=== PATIENT | female | born 1980 | race Caucasian/White ===

== ENCOUNTER → 2016-07-02 | Outpatient (CLI) | payer BC ==
--- NOTE | 2016-07-02 19:02 | DIAGNOSTIC IMAGING REPORT ---
CERVICAL SPINE 5 VIEWS CLINICAL HISTORY: Left-sided neck pain. FINDINGS: AP, lateral, bilateral oblique, and odontoid views of the cervical spine are obtained. No prior studies are available for comparison at the time of dictation. The skeletal structures are well mineralized. There is no radiographic evidence of fracture or subluxation. The odontoid process and lateral masses appear intact on the open mouth view. The spinolaminar line is preserved. Vertebral body height and alignment are maintained. There is straightening of the cervical lordosis. The spinous processes appear intact. The intervertebral disc spaces are normal. There is no evidence of neuroforaminal stenosis on the oblique views. The prevertebral soft tissues are within normal limits. Visualized apical lung parenchyma appears clear. IMPRESSION: There is no acute bony abnormality seen involving the cervical spine. Electronically signed by: Sergio Lubin M.D. 07/02/2016 7:00 PM Dictated Date/Time: 07/02/2016 6:59 PM
== END | disposition home or self-care (01) ==
LOC: C.RAD 18:07
PROVIDERS: ATTEND Internal Medicine
DX: M54.2 Cervicalgia (principal)

== ENCOUNTER → 2016-09-24 | Outpatient (CLI) | payer BC ==
--- NOTE | 2016-09-24 14:10 | DIAGNOSTIC IMAGING REPORT ---
MRI OF THE CERVICAL SPINE WITHOUT CONTRAST CLINICAL HISTORY: Left-sided neck pain radiating into trapezius. COMPARISON: Cervical spine radiographs July 02, 2016. TECHNIQUE: Utilizing a 1.5 Lucrecia magnet and dedicated coil, multiplanar, multiecho imaging of the cervical spine was performed without IV contrast. FINDINGS: Alignment of the cervical spine is anatomic. Vertebral body heights are maintained. There is no marrow replacement. Cervical cord signal and caliber are normal. There is no intracanalicular mass or fluid collection within the cervical canal. However, there is a partially visualized T2 hyperintense, T1 hypointense posterior epidural abnormality at the T4-T5 level. This measures at least 1 cm in size. This is incompletely imaged on this exam. C2-C3: The central canal and neural foramen are patent. C3-C4: The central canal and neural foramen are patent. C4-C5: The central canal and neural foramen are patent. C5-C6: There is a central annular tear with tiny central disc protrusion. The central canal and neural foramen are patent. C6-C7: The central canal and neural foramen are patent. C7-T1: The central canal and neural foramen are patent. IMPRESSION: 1. Minimal degenerative changes of the cervical spine with a tiny central disc protrusion and annular tear at C5-C6. Patent central canal and neural foramen within the cervical spine. 2. Partially visualized cystic abnormality within the posterior epidural space at the T4-T5 level. 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 However, an MRI of the thoracic spine with and without contrast is recommended to fully visualize and better characterize this abnormality. Electronically signed by: Biju Ricardo M.D. 09/24/2016 2:07 PM Dictated Date/Time: 09/24/2016 1:58 PM
== END | disposition home or self-care (01) ==
LOC: C.MRI 13:02
PROVIDERS: ATTEND Orthopaedic Surgery Orthopaedic Surgery of the Spine
DX: M50.20 Other cervical disc displacement, unspecified cervical region (principal); R93.7 Abnormal findings on diagnostic imaging of other parts of musculoskeletal system